=== PATIENT | female | born 1995 | race Caucasian/White ===

== ENCOUNTER 2018-06-14 04:45 | Emergency (ER) | payer OTHER ==
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
[2018-06-14] MEDS ORDERED: ACETAMINOPHEN 500 MG TABLET (FP) PO ONE (04:57)
[2018-06-14] MEDS ORDERED: ACETAMINOPHEN 500 MG TABLET (FP) ONE (05:00)
[2018-06-14 05:01] VITALS: BP 99/69; PULSE 89; TEMP 97.7; BMI 25.4
== END 2018-06-14 05:12 | disposition home or self-care (01) ==
LOC: FER 04:45
DX: S00.03XA Contusion of scalp, initial encounter (principal); R51 Headache; V43.62XA Car passenger injured in collision with other type car in traffic accident, initial encounter; Y93.89 Activity, other specified; Y92.410 Unspecified street and highway as the place of occurrence of the external cause
CPT/HCPCS: 99281-25

== ENCOUNTER 2022-04-08 19:51 | Emergency (ER) | payer OTHER ==
[2022-04-08] MEDS ORDERED: SODIUM CHLORIDE 1,000 ML IV ONE (20:18)
[2022-04-08 20:39] LABS: HEMOGLOBIN 11.7 G/dL (10.7-15.3); MCH 31.1 pg (25.7-33.7); MCHC 34.4 g/dl (32.0-36.0); MEAN CELL VOLUME 90.3 fl (80-96); MEAN PLT VOLUME 7.5 fl (7.5-11.1); RBC 3.76 10^6/uL (3.60-5.2); RDW 13.7 % (11.6-15.6); WHITE BLOOD COUNT 6.9 10^3/uL (4.0-10.8)
[2022-04-08 20:49] LABS: HCG,QUALITATIVE URINE Negative
[2022-04-08 20:49] LABS: ALBUMIN 4.2 g/dl (3.4-5.0); BILIRUBIN,TOTAL 0.6 mg/dl (0.2-1); CALCIUM 8.9 mg/dl (8.5-10); CREATININE 0.7 mg/dl (0.55-1.3); TOT PROT 6.6 g/dl (6.4-8.2)
[2022-04-08 21:06] VITALS: RESP 16; TEMP 98.4; BMI 26.4
[2022-04-08 21:30] VITALS: BP 103/60; PULSE 80
[2022-04-08 22:02] LABS: EPITHELIAL CELLS FEW /hpf
[2022-04-08 22:20] LABS: PLATELET ESTIMATE ADEQUATE
== END 2022-04-08 21:32 | disposition home or self-care (01) ==
LOC: FER 19:51
DX: U07.1 COVID-19 (principal); R10.31 Right lower quadrant pain
CPT/HCPCS: 36415; 80053; 81003; 81015; 84703; 85027; 99283-25